=== PATIENT | male | born 1940 | race Caucasian/White ===

== ENCOUNTER 2025-03-10 10:33 | Outpatient (AMB) | payer MEDICARE, SELFPAY ==
--- NOTE | 2025-03-10 10:36 | MHC.PC.OV ---
Vital Signs 03/10/25 10:40 Height 6 ft Weight 202 lb BMI 27.4 BP 116/62 Blood Pressure Location Lt brachial Position Sitting Respiration 14 Pulse 84 Pulse Source Pulse Oximeter Temp 97.9 F Temp Source Oral Pulse Oximetry (%) 98 Oxygen Delivery Method Room Air Intake Visit Reasons: CPE Intake Note: New patient visit [employer] Required: No Allergies No Known Allergies Allergy (Verified 03/10/25 10:39) Tobacco use date assessed: 03/10/25 Fall risk assessment: 1 Fall in past year Last assessed Fall Risk: 03/10/25 Dental Screening Dental Screen Date: 03/10/25 Did you have a dental visit in the last 12 months?: No Did you have a dental problem in the last 6 months where you did not have access to dental care?: No Was dental information given to patient?: Patient has dentist HPI HPI Comments History of Present Illness Details 84 year old male with a past medical history of prostate cancer, diabetes, hypertension, hyperlipidemia, OA s/p knee replacement presenting to [facility] care/cpe. Transfer from [facility] primary care. Follows at [facility] once annual DM-on metformin 500mg twice daily, farxiga 10mg daily, januvia 100mg daily. CKD stage 3. b/l cataracts. Eye exam is up to date-Dr Baker. CV: on lisinopril 5mg daily, lipitor 40mg daily Prostate cancer folllowed by urology group [facility]. PSA 0.1. Eligard shots MSK: History of knee replacement 04/2022 Dr Tien will be getting right knee done in May. Colonoscopy-2 years ago Shingrix -2018 RSV 2022 Tdap 11/2023 Flu shot 2024 COVID 2024 Pneumonia-needs booster ROS CONSTITUTIONAL: Denies weight loss, fever and chills. HEENT: Denies changes in vision and hearing. RESPIRATORY: Denies SOB and cough. CV: Denies palpitations and CP GI: Denies abdominal pain, nausea, vomiting and diarrhea. : Denies dysuria and urinary frequency. MSK: Denies new myalgia and joint pain. SKIN: Denies rash and pruritus. NEUROLOGICAL: Denies headache PSYCHIATRIC: Denies recent changes in mood. PHYSICAL EXAM: GENERAL: Alert and oriented x 3. NAD EYES: EOMI. Anicteric. HENT: Moist mucous membranes. No scleral icterus. No cervical lymphadenopathy. LUNGS: Clear to auscultation bilaterally. CARDIOVASCULAR: Regular rate and rhythm. No murmur. No JVD. ABDOMEN: Soft, non-tender +bs EXTREMITIES: No edema. Non-tender. SKIN: No rashes or lesions. Warm. NEUROLOGIC: No focal neurological deficits. CN II-XII grossly intact PSYCHIATRIC: Cooperative. Appropriate mood and affect [facility] Medical History (Updated 03/12/25 @ 11:46 by Gila Rosado MD) Bilateral cataracts Surgical History (Updated 03/10/25 @ 10:53 by Demetria Abreu CMA) History of knee replacement Social History (Updated 03/10/25 @ 10:54 by Demetria Abreu CMA) Housing: House Alcohol intake: current Patient Tobacco Use Status: Former Tobacco user (quit 50 years ago) Cigarette Packs Per Day: 1 Years Smoked: 15 e-Cigarette/Vaping Use: Never Used Second Hand Smoke Exposure: No service: Yes Current occupational status: retired Cognitive needs: No Hearing needs: No Vision needs: No Questionnaire PHQ-9 Over the last 2 weeks, how often have you been bothered by any of the following problems? 1. Little interest or pleasure in doing things: not at all 2. Feeling down, depressed, or hopeless: not at all 3. Trouble falling or staying asleep, or sleeping too much: not at all 4. Feeling tired or having little energy: not at all 5. Poor appetite or overeating: not at all 6. Feeling bad about yourself - or that you are a failure or have let yourself or your family down: not at all 7. Trouble concentrating on things, such as reading the newspaper or watching television: not at all 8. Moving or speaking so slowly that other people could have noticed. Or the opposite - being so fidgety or restless that you have been moving around a lot more than usual: not at all 9. Thoughts that you would be better off or of hurting yourself in some way: not at all Total score: 0 Source: Developed by Drs. Tyler Schilling, Dilma Mccall, Alexander Conrad and colleagues, with an educational brittaney from [email or web address]. Thrive Questionnaire I am a: Patient What is your living situation today?: I have a steady place to live Within the past 12 months, did the food you bought not last and you didn't have the money to get more?: Never true Within the past 12 months, did you worry whether your food would run out before you got money to buy more?: Never true Do you have trouble paying for medicines?: No Do you have trouble getting transportation to medical appointments?: No Do you have trouble paying your heating and electricity bill?: No Do you have trouble taking care of your child, family member or friend?: No Do you have trouble with day-to-day activities such as bathing, preparing meals, shopping, managing finances, etc.?: No Are you currently unemployed and looking for a job?: No Are you interested in more education?: No Please select the resources that you would like help with: Utilities Currently or been in a relationship where the following occur: No concerns reported THRIVE Score: 0 AUDIT C Alcohol Use Questionnaire (AUDIT-C) 1. How often do you have a drink containing alcohol?: 2-4 times a month 2. How many drinks containing alcohol do you have on a typical day when you are drinking?: 1 or 2 3. How often do you have six or more drinks on one occasion?: Never Total Score: 2 ROSALEE-7 AMB Questionnaire ROSALEE-7 Feeling nervous, anxious, or on edge: 0 = Not at all Not being able to stop or control worryin = Not at all Worrying too much about different things: 0 = Not at all Trouble relaxin = Not at all Being so restless that it is hard to sit still: 0 = Not at all Becoming easily annoyed or irritable: 0 = Not at all Feeling afraid as if something awful might happen: 0 = Not at all Total ROSALEE-7 score (0-4 normal; 5-9 mild; 10-14 moderate; 15-21 severe): 0 Source: Developed by Drs. Tyler Schilling, Dilma Mccall, Alexander Conrad and colleagues, with an educational brittaney from [email or web address]. Physical exam (Primary Care) Vital Signs: Last Vital Signs Temp 97.9 F 03/10/25 10:40 Pulse 84 03/10/25 10:40 Resp 14 03/10/25 10:40 BP 116/62 03/10/25 10:40 Pulse Ox 98 12/09/25 10:40 Oxygen Delivery Method Room Air 03/10/25 10:40 BMI result Body Mass Index 27.4 Tobacco/Smoking Status: Tobacco use Status Tobacco use date assessed 03/10/25 03/10/25 10:45 Patient Tobacco Use Status Former Tobacco user (quit 50 03/10/25 10:54 years ago) e-Cigarette/Vaping Use Never Used 03/10/25 10:54 PHQ-9: PHQ-9 Score PHQ-9: Total score 0 03/10/25 10:50 Currently or been in a relationship where the following occur: No concerns reported Coding Level of Care Code New Pt Level 4 (72738) Diagnoses Type 2 diabetes mellitus with diabetic cataract, without long-term current use of insulin E11.36 Diabetes mellitus complication detail: with cataract Diabetes mellitus complication status: with ophthalmic complications Diabetes mellitus long-term insulin use: without long-term use Diabetes mellitus type: type 2 Hyperlipidemia, unspecified hyperlipidemia type E78.5 Hyperlipidemia type: unspecified Prostate cancer C61 Assessment & Plan Assessment & Plan (1) Diabetes: Code(s): E11.9 - Type 2 diabetes mellitus without complications Category: Medical Qualifiers: Diabetes mellitus complication detail: with cataract Diabetes mellitus complication status: with ophthalmic complications Diabetes mellitus long-term insulin use: without exterminator helper termite use Diabetes mellitus type: type 2 Qualified Code(s): E11.36 - Type 2 diabetes mellitus with diabetic cataract (2) Hyperlipidemia: Code(s): E78.5 - Hyperlipidemia, unspecified Category: Medical Qualifiers: Hyperlipidemia type: unspecified Qualified Code(s): E78.5 - Hyperlipidemia, unspecified (3) Prostate cancer: Code(s): C61 - Malignant neoplasm of prostate Category: Medical Plan 84 year old male presenting to [facility] care Past medical, surgical, social reviewed DM-Check labs prior to next visit. patient recently had labs at [facility] Prostate ca-continue follow up urology Preventive measures/immunizations utd except pneumonia booster Orders: Orders Comprehensive [place]. Panel Fast 03/10/25 C61 - Malignant neoplasm of prostate, E11.9 - Type 2 diabetes mellitus without complications, E78.5 - Hyperlipidemia, unspecified Microalbumin, Random (w Creat) 03/10/25 C61 - Malignant neoplasm of prostate, E11.9 - Type 2 diabetes mellitus without complications, E78.5 - Hyperlipidemia, unspecified Complete Blood Count Auto Diff 03/10/25 C61 - Malignant neoplasm of prostate, Z13.0 - Encounter for screening for diseases of the blood and blood-forming organs and certain disorders involving the immune mechanism Hemoglobin A1c 03/10/25 C61 - Malignant neoplasm of prostate, E11.9 - Type 2 diabetes mellitus without complications, E78.5 - Hyperlipidemia, unspecified Lipid Panel 03/10/25 C61 - Malignant neoplasm of prostate, E11.9 - Type 2 diabetes mellitus without complications, E78.5 - Hyperlipidemia, unspecified Medications: New True Metrix Glucose Test Strip (blood sugar diagnostic) once daily and as needed 100 ea 3RF NS E11.9 - Type 2 diabetes mellitus without complications, E78.5 - Hyperlipidemia, unspecified lancets (Accu-Chek Softclix Lancets) Check blood glucose once daily and as needed 100 ea 3RF E11.9 - Type 2 diabetes mellitus without complications
[2025-03-10 10:40] VITALS: BP 116/62; PULSE 84; RESP 14; TEMP 36.6; O2SAT 98; BMI 27.4
== END 2025-03-10 11:15 | disposition home or self-care (01) ==
LOC: HO.HMCFM 10:34
PROVIDERS: PCP Internal Medicine; Visit Provider Internal Medicine
DX: E11.36 Type 2 diabetes mellitus with diabetic cataract (principal); E78.5 Hyperlipidemia, unspecified; C61 Malignant neoplasm of prostate

== ENCOUNTER → 2025-03-10 10:33 | Outpatient (BNVA) | payer MEDICARE, SELFPAY | PROVIDERS: Visit Provider Internal Medicine | DX: Z76.89 Persons encountering health services in other specified circumstances (principal); E11.36 Type 2 diabetes mellitus with diabetic cataract; H26.9 Unspecified cataract; E78.5 Hyperlipidemia, unspecified; C61 Malignant neoplasm of prostate; E11.22 Type 2 diabetes mellitus with diabetic chronic kidney disease; I12.9 Hypertensive chronic kidney disease with stage 1 through stage 4 chronic kidney disease, or unspecified chronic kidney disease; N18.30 Chronic kidney disease, stage 3 unspecified; Z79.84 Long term (current) use of oral hypoglycemic drugs; Z79.899 Other long term (current) drug therapy; Z13.30 Encounter for screening examination for mental health and behavioral disorders, unspecified | CPT/HCPCS: 96127; 99202 ==